=== PATIENT | female | born 2000 | race Caucasian/White ===

== ENCOUNTER 2020-08-05 14:30 | Emergency (ER) | payer BC, SELFPAY ==
[2020-08-05 14:55] VITALS: BP 130/73; PULSE 92; RESP 16; TEMP 36.3; O2SAT 99; BMI 22.7
--- NOTE | 2020-08-05 16:50 | DI.CT.S_ITS ---
PROCEDURE: CT HEAD/BRAIN WO CON INDICATIONS: fall 07/27 dizzy headache. TECHNIQUE: Noncontrast 4.5 mm thick angled axial sections acquired from the foramen magnum to the vertex, with coronal and sagittal reformats. For radiation dose reduction, the following was used: automated exposure control, adjustment of mA and/or kV according to patient size. COMPARISON: None. FINDINGS: Image quality: There is streak artifact from an earring. CSF spaces: Basal cisterns are patent. No extra-axial fluid collections. Ventricles are normal in size and shape. Brain: No midline shift. No intracranial masses or hemorrhage. Salgado-white matter interface is normal. Skull and face: Calvarium and visualized facial bones are intact, without suspicious lesions. Sinuses: Visualized sinuses and mastoids are clear. IMPRESSION: No acute intracranial hemorrhage is seen. No acute intracranial process is seen. Dictated by: Jelani Malagon M.D. on 08/05/2020 at 16:16 Approved by: Jelani Malagon M.D. on 08/05/2020 at 16:16
[2020-08-05 17:34] VITALS: PULSE 69; O2SAT 99
[2020-08-05 18:00] VITALS: BP 99/50; PULSE 60; O2SAT 97
--- NOTE | 2020-08-05 18:11 | ED_ITS ---
HPI - General Adult General Chief complaint: Dizziness Stated complaint: Extreme Dizziness Time Seen by Provider: 08/05/20 17:16 Source: patient Mode of arrival: Ambulatory Limitations: no limitations History of Present Illness HPI narrative: 19-year-old female who approximately 10 days ago was snowboarding and fell and hit her head. There was no loss of consciousness however she felt very dazed afterwards. States she started to feel better until a couple days ago where she started to have she describes as extreme dizziness. She describes it as a lightheaded sensation not a room spinning sensation. Also states she has a headache. No reports of nausea vomiting. No vision changes. Went to see her primary doctor who sent her to the emergency department for head CT given her symptoms. Related Data Allergies Allergy/AdvReac Type Severity Reaction Status Date / Time codeine Allergy Verified 08/05/20 15:45 Review of Systems Constitutional Constitutional: Denies fever(s) and Reports headache(s) Eyes Eyes: Denies change in vision ENT Ears, Nose, Mouth, and Throat: Denies vertigo, Reports dizziness, Reports headache(s), Denies neck pain, Denies sinus pressure and Denies sore throat Cardiovascular Cardiovascular: Denies chest pain and Denies dyspnea Respiratory Respiratory: Denies cough and Denies dyspnea Gastrointestinal Gastrointestinal: Denies change in bowel habits, Denies nausea and Denies vomiting Genitourinary Genitourinary: Denies dysuria Genitourinary: Denies dysuria Musculoskeletal Musculoskeletal: Denies arthralgias, Denies myalgias and Denies neck pain Integumentary/Breasts Skin/Breast: Denies lesions and Denies rash Neurologic Neurologic: Denies abnormal movements, Denies behavioral changes, Denies confusion, Denies vertigo, Reports dizziness and Reports headache(s) Psychiatric Psychiatric: Denies behavioral changes and Denies confusion Hematologic/Lymphatic Hematologic/Lymphatic: Denies easy bleeding and Denies easy bruising Allergic/Immunologic Allergic/Immunologic: Denies urticaria Patient History Medical History Healthy adult Social History Smoking Status: Never smoker Smoking Status: Never smoker alcohol intake frequency: 0-2 drinks per day Substance Use Type: marijuana Exam Initial Vital Signs Initial Vital Signs: Vital Signs Temperature 97.3 F L 08/05/20 14:55 Pulse Rate 92 H 08/05/20 14:55 Respiratory Rate 16 08/05/20 14:55 Blood Pressure 130/73 08/05/20 14:55 Pulse Oximetry 99 08/05/20 14:55 Const General: cooperative and comfortable Limitations: mental status not altered HENMT Head: normal to inspection, normocephalic and atraumatic Eyes Pupils: PERRL EOM: EOM intact bilaterally Resp Effort & Inspection: normal respiratory effort Auscultation: clear to auscultation bilaterally Cardio Rate: regular rate Rhythm: regular rhythm GI Inspection: non-distended Palpation: soft Skin Lesions: no lesions Rashes: no rashes Neuro General: patient alert, patient awake and patient oriented x3 Cognition: normal cognition Speech: speech normal Gait: normal gait Extrem General: normal to inspection and capillary refill normal Psych Appearance: grossly normal and well kempt Scores GCS [employer] [place] coma scale eye opening: Spontaneous [place] coma scale verbal response: Orientated [place] coma scale motor response: Obey commands [place] coma scale total score: 15 Course Orders Ordered: ED Orders 08/05/20 16:50 CT head/brain wo con Stat Vital Signs Vital signs: Vital Signs - 8 hr 08/05/20 14:55 08/05/20 17:34 08/05/20 18:00 Temperature 97.3 F L Pulse Rate 92 H 69 60 Respiratory Rate 16 Blood Pressure 130/73 99/50 L Pulse Oximetry 99 99 97 Medical Decision Making Medical Records Medical records reviewed: Yes I reviewed the patient's medical records. Lab Data Lab results reviewed: Yes I reviewed the patient's lab results. Imaging Data CT scan - head: Radiologist's Impression: [address] [id number] Scan ReportSigned Patient: Lucy Degroot [facility]#: [id number]: 2000Acct:[id number]/Sex: 19 / FDate of Service: 08/05/20Loc: EDAccession Number: [id number] Procedure: CT head/brain wo con Ordering Provider: Machelle Gaffney D.O. PROCEDURE: CT HEAD/BRAIN WO CON INDICATIONS: fall 07/27 dizzy headache. TECHNIQUE: Noncontrast 4.5 mm thick angled axial sections acquired from the foramen magnum to the vertex, with coronal and sagittal reformats. For radiation dose reduction, the following was used: automated exposure control, adjustment of mA and/or kV according to patient size. COMPARISON: None. FINDINGS: Image quality: There is streak artifact from an earring. CSF spaces: Basal cisterns are patent. No extra-axial fluid collections. Ventricles are normal in size and shape. Brain: No midline shift. No intracranial masses or hemorrhage. Salgado-white matter interface is normal. Skull and face: Calvarium and visualized facial bones are intact, without suspicious lesions. Sinuses: Visualized sinuses and mastoids are clear. IMPRESSION: No acute intracranial hemorrhage is seen. No acute intracranial process is seen. Dictated by: Jelani Malagon M.D. on 08/05/2020 at 16:16 Approved by: Jelani Malagon M.D. on 08/05/2020 at 16:16 [facility] Narrative Medical decision making narrative: Patient has a nonfocal neurologic exam. Head CT is unremarkable. She describes a lightheadedness and not a vertigo sensat ion. No fevers. Low suspicion for TIA/CVA. No hemorrhage noted on the head CT. I suspect that her symptoms are related to the fall and the head injury that she sustained a couple days ago. I discussed this with the patient. I feel she could be safely discharged home without further workup. Did discuss return precautions and follow-up instructions. She expressed understanding and agreement Discharge Plan Departure Patient Disposition: Home Clinical Impression: Closed head injury, Dizziness, Concussion Instructions: Concussion Activity Restrictions/Additional Instructions: You have no restrictions on your activities other than avoiding things that make her symptoms worse. I recommend you contact your primary provider for a follow- up. Return to the emergency department for any new or worsening symptoms
[2020-08-05 18:30] VITALS: BP 91/71; PULSE 70; O2SAT 98
== END 2020-08-05 18:50 | disposition home or self-care (01) ==
PROVIDERS: Emergency Provider Emergency Medicine
DX: S06.0X9A Concussion with loss of consciousness of unspecified duration, initial encounter (principal); V00.311A Fall from snowboard, initial encounter; R42 Dizziness and giddiness; R51.9 Headache, unspecified
CPT/HCPCS: 70450; 99283; 99284